=== PATIENT | female | born 1930 | race Caucasian/White ===

== ENCOUNTER 2019-02-17 18:36 | Inpatient (IN) | payer MEDICARE ==
[~2019-02-17] VITALS: Ht 172.7 cm; Wt 60.0 kg
[~2019-02-17 18:36] MED LIST: HYDR-4383 PO; METO-395 PO; PANT20TA3 PO; PREG50CA PO; SOTA80TA73 PO
--- NOTE | 2019-02-17 18:49 | NUR ---
Patient states she recently started antibiotics for urinary tract infection and has temperature of 100.9 oral on arrival. UA ordered.
[2019-02-17] MEDS ORDERED: acetaminophen 325mg tablet PO STA (19:00)
[2019-02-17 19:03] LABS: BASOPHILS % (AUTO) 0.2 % (0-1); EOSINOPHILS % (AUTO) 0.1 % (0-6); HEMATOCRIT 34.4 % (35.0-45.0); HEMOGLOBIN 11.8 g/dl (12.0-16.0); LYMPHOCYTES # (AUTO) 0.5 X10'3 (1.1-4.8); LYMPHOCYTES % (AUTO) 3.5 % (21-51); MEAN CORPUSCULAR HEMOGLOBIN 32.9 PG (27.0-31.0); MEAN CORPUSCULAR HGB CONC 34.2 g/dL (33.0-36.5); MEAN PLATELET VOLUME 8.4 FL (7.4-10.4); MONOCYTES # (AUTO) 1.3 X10'3 (0-0.9); MONOCYTES % (AUTO) 8.8 % (2-12); NEUTROPHILS # (AUTO) 13.3 X10'3 (1.8-7.7); NEUTROPHILS % (AUTO) 87.4 % (42-75); PLATELET COUNT 145 X10'3 (140-440); RED BLOOD COUNT 3.58 X10'6 (4.20-5.60); RED CELL DISTRIBUTION WIDTH 13.5 % (11.5-14.5); WHITE BLOOD COUNT 15.2 X10'3 (4.5-11.0)
[2019-02-17 19:07] LABS: INR 1.1 INR; PARTIAL THROMBOPLASTIN TIME 31 SECONDS (22-32)
[2019-02-17 19:13] LABS: ALANINE AMINOTRANSFERASE 35 U/L (12-78); ALBUMIN/GLOBULIN RATIO 0.8 (1.1-1.5); ALKALINE PHOSPHATASE 83 IU/L (46-116); ANION GAP 13 (8-16); ASPARTATE AMINO TRANSFERASE 34 U/L (10-37); BILIRUBIN,TOTAL 0.5 MG/DL (0.1-1.0); BLOOD UREA NITROGEN 56 MG/DL (7-18); BUN/CREATININE RATIO 30.9 (6.6-38.0); CALCIUM 8.9 MG/DL (8.5-10.1); CHLORIDE 107 MMOL/L (99-107); CREATININE 1.81 MG/DL (0.40-0.90); GLUCOSE 120 MG/DL (70-104); POTASSIUM 4.4 MMOL/L (3.5-5.1); SODIUM 139 MMOL/L (135-145); TOTAL CARBON DIOXIDE 19.5 MMOL/L (24-32); TOTAL PROTEIN 6.8 G/DL (6.4-8.2); eGFR 27 ML/MIN
[2019-02-17 19:35] LABS: CLARITY,URINE SLIGHTLY CLOUDY (Clear); COLOR,URINE YELLOW (Yellow); GLUCOSE, URINE NEGATIVE (Neg); KETONES,URINE NEGATIVE (Neg); LEUKOCYTE ESTERASE ,URINE MODERATE (Neg); NITRITES, URINE NEGATIVE (Neg); OCCULT BLOOD,URINE MODERATE (Neg); PROTEIN,URINE 100 mg/dl (Neg); UA COLLECTION TYPE STRAIGHT CATH; UROBILINOGEN,URINE 0.2 E.U/dL (0.2-1.0)
[2019-02-17 19:41] LABS: BACTERIA,URINE 3+ /HPF (Neg); MUCUS STRANDS NONE SEEN /LPF (Neg); SQUAMOUS EPITHELIAL CELL,UR NONE SEEN /LPF (FEW); WBC,URINE 50-100 /HPF (0-4)
[2019-02-17 19:51] LABS: TOTAL CELLS COUNTED 100
[2019-02-17 19:52] LABS: PLATELET ESTIMATE NORMAL
[2019-02-17] MEDS ORDERED: CefTRIAXone/D5W-Rocephin 1gm 50 ML IV ONE (20:00)
[2019-02-17] MEDS ORDERED: normal saline 1000ML IV soln IVB ONE ×2 (20:30→20:50)
[2019-02-17] MEDS: normal saline 1000ml 1,000 ML IV SCH (20:57)
[2019-02-17] MEDS ORDERED: ondansetron/PF 4mg/2ml inj IV PRN (21:00)
[2019-02-17] MEDS ORDERED: magnesium 4gm in 100ml NS 100 ML IV PRN (21:00)
[2019-02-17] MEDS ORDERED: metoclopramide 5 mg/ml inj IV PRN (21:00)
[2019-02-17] MEDS ORDERED: magnesium Cl slow-release 64mg tablet PO PRN (21:00)
[2019-02-17] MEDS ORDERED: potassium Cl 20 mEq SR tablet PO PRN ×2 (21:00)
[2019-02-17] MEDS ORDERED: bisacodyl 10mg suppository rectal RC PRN (21:00)
[2019-02-17] MEDS ORDERED: acetaminophen 325mg tablet PO PRN (21:00)
[2019-02-17] MEDS ORDERED: potassium CL 10mEq/100ml bag 100 ML IV PRN (21:00)
[2019-02-17] MEDS ORDERED: mag hydrox/Alum hydrox/simeth 30ml oral suspension PO PRN (21:00)
[2019-02-17] MEDS ORDERED: magnesium 2GM in 50ml NS 50 ML IV PRN (21:00)
[2019-02-17] MEDS ORDERED: magnesium hydroxide 30ml (MOM) UD suspension PO PRN (21:00)
[2019-02-17] MEDS ORDERED: potassium Cl 40MEQ/NS 500ml 500 ML IV PRN (21:00)
[2019-02-17] MEDS ORDERED: ACET-2119 PO (21:03)
--- NOTE | 2019-02-17 21:50 | NUR ---
Patient in room [facility]. I have received report from ANIL OLIVEIRA IN THE ER and had the opportunity to ask questions and will assume patient care upon arrival to the floor. Addendum: 02/17/19 at 2151 by Jamila Norwood RN Amended: Links added.
--- NOTE | 2019-02-17 22:10 | NUR ---
ARRIVED TO THE FLOOR AND SETTLED IN.
[2019-02-17 22:18] VITALS: BP 117/56
[2019-02-18] VITALS: BP 87/51
--- NOTE | 2019-02-18 | NUR ---
rolled over to her side to go to sleep after eating part of a turkey sandwich and non fat milk.
--- NOTE | 2019-02-18 01:57 | NUR ---
resting on her side eyes closed without s&s of distress at this time.
--- NOTE | 2019-02-18 02:48 | NUR ---
resting eyes closed no s&s of distress at this time.
--- NOTE | 2019-02-18 04:45 | NUR ---
pt resting eyes closed without changes at this time.
[2019-02-18 05:28] LABS: HEMOGLOBIN 10.4 g/dl (12.0-16.0); LYMPHOCYTES # (AUTO) 1.7 X10'3 (1.1-4.8); MEAN CORPUSCULAR HEMOGLOBIN 33.1 PG (27.0-31.0); MONOCYTES # (AUTO) 1.6 X10'3 (0-0.9); RED BLOOD COUNT 3.14 X10'6 (4.20-5.60); WHITE BLOOD COUNT 16.1 X10'3 (4.5-11.0)
[2019-02-18 05:32] LABS: BASOPHILS % (AUTO) 0 % (0-1); EOSINOPHILS # (AUTO) 0.1 X10'3 (0-0.9); EOSINOPHILS % (AUTO) 0.3 % (0-6); HEMATOCRIT 30.9 % (35.0-45.0); LYMPHOCYTES % (AUTO) 10.5 % (21-51); MEAN CORPUSCULAR HGB CONC 33.6 g/dL (33.0-36.5); MEAN CORPUSCULAR VOLUME 98.6 FL (78-98); MEAN PLATELET VOLUME 9.2 FL (7.4-10.4); MONOCYTES % (AUTO) 9.9 % (2-12); NEUTROPHILS # (AUTO) 12.8 X10'3 (1.8-7.7); NEUTROPHILS % (AUTO) 79.3 % (42-75); PLATELET COUNT 123 X10'3 (140-440); RED CELL DISTRIBUTION WIDTH 13.8 % (11.5-14.5)
--- NOTE | 2019-02-18 05:45 | NUR ---
assist to brp void dark foul smelling urine 200cc and then assisted into bed. c/o headache and tylenol obtained and given to her.
[2019-02-18] MEDS: acetaminophen 325mg tablet PO PRN ×2 (06:00→12:10)
[2019-02-18 06:20] LABS: ALANINE AMINOTRANSFERASE 31 U/L (12-78); ALBUMIN 2.6 G/DL (3.4-5.0); ALBUMIN/GLOBULIN RATIO 0.8 (1.1-1.5); ALKALINE PHOSPHATASE 68 IU/L (46-116); ANION GAP 12 (8-16); ASPARTATE AMINO TRANSFERASE 26 U/L (10-37); BILIRUBIN,TOTAL 0.3 MG/DL (0.1-1.0); BLOOD UREA NITROGEN 57 MG/DL (7-18); BUN/CREATININE RATIO 32.4 (6.6-38.0); CALCIUM 8.5 MG/DL (8.5-10.1); CHLORIDE 110 MMOL/L (99-107); CREATININE 1.76 MG/DL (0.40-0.90); GLUCOSE 100 MG/DL (70-104); MAGNESIUM 1.7 MG/DL (1.5-2.4); PHOSPHORUS 2.8 MG/DL (2.3-4.5); POTASSIUM 4.3 MMOL/L (3.5-5.1); SODIUM 142 MMOL/L (135-145); TOTAL CARBON DIOXIDE 19.8 MMOL/L (24-32); eGFR 27 ML/MIN
--- NOTE | 2019-02-18 06:41 | NUR ---
Problems reprioritized. Patient report given, questions answered & plan of care reviewed with Emelia Ramos. Addendum: 02/18/19 at 0641 by Jamila Norwood RN Amended: Links added.
[2019-02-18 07:00] VITALS: BP 96/43
[2019-02-18 07:10] LABS: TOTAL CELLS COUNTED 100
[2019-02-18 07:11] LABS: ANISOCYTOSIS 1+; PLATELET ESTIMATE DECREASED
[2019-02-18] MEDS ORDERED: heparin, porcine 5000 units/ml vial SQ SCH (08:00)
[2019-02-18] MEDS ORDERED: K and/or MAG REPLACEMENT MC SCH (08:00)
[2019-02-18] MEDS ORDERED: sotalol 80mg tablet PO SCH (08:00)
[2019-02-18] MEDS ORDERED: LEVO500T2 PO (08:11)
[2019-02-18] MEDS: normal saline 1000ml 1,000 ML IV SCH (09:30)
--- NOTE | 2019-02-18 10:20 | NUR ---
Student documentation: I have reviewed and agree with all interventions, assessments performed and documented by Ashley, graduate student.
--- NOTE | 2019-02-18 12:26 | NUR ---
Patient in room [facility]. I have received report from TEE Kapoor and had the opportunity to ask questions and assume patient care.
--- NOTE | 2019-02-18 16:45 | NUR ---
reviewed discharge instructions with pt and her daughter at bedside. All questions answered. [facility] pharmacy delivered pts prescription abx to bedside. Pts personal bottle of Sotalol retrieved from ER and given to daughter. IV removed and pt escorted to car via wheelchair for d/c.
[2019-02-18] MEDS ORDERED: lactobacillus rhamnosus 10,000 MMU CELLS/CAPSULE PO SCH (20:00)
[2019-02-18] MEDS ORDERED: CefTRIAXone/D5W-Rocephin 1gm 50 ML IV SCH (20:00)
== END 2019-02-18 17:08 | disposition home or self-care (01) | DRG 871 ==
LOC: ER 18:37 → SUR 3N 21:15
PROVIDERS: ADMIT Family Medicine; ATTEND Internal Medicine
DX: A41.9 Sepsis, unspecified organism (principal); G93.41 Metabolic encephalopathy; N39.0 Urinary tract infection, site not specified; G89.29 Other chronic pain; N18.3 Chronic kidney disease, stage 3 (moderate); C44.92 Squamous cell carcinoma of skin, unspecified; E78.5 Hyperlipidemia, unspecified; F03.90 Unspecified dementia, unspecified severity, without behavioral disturbance, psychotic disturbance, mood disturbance, and anxiety; I12.9 Hypertensive chronic kidney disease with stage 1 through stage 4 chronic kidney disease, or unspecified chronic kidney disease; I48.0 Paroxysmal atrial fibrillation; Z96.652 Presence of left artificial knee joint; F41.9 Anxiety disorder, unspecified; F32.9 Major depressive disorder, single episode, unspecified; R41.89 Other symptoms and signs involving cognitive functions and awareness; M54.9 Dorsalgia, unspecified; B96.89 Other specified bacterial agents as the cause of diseases classified elsewhere; Z87.440 Personal history of urinary (tract) infections; Z90.49 Acquired absence of other specified parts of digestive tract; Z90.710 Acquired absence of both cervix and uterus; Z95.0 Presence of cardiac pacemaker; Z88.5 Allergy status to narcotic agent; Z88.0 Allergy status to penicillin; Z88.8 Allergy status to other drugs, medicaments and biological substances
CPT/HCPCS: 36415; 71045; 80053; 81001; 83605; 83735; 84100; 84145; 84484; 85025; 85610; 85730; 87040; 87070; 87077; 87088; 87186; 93005; 96365; 97116; 97162; 99285; G0378; J0696; J7030

== ENCOUNTER 2019-02-23 20:49 | Emergency (ER) | payer MEDICARE ==
[~2019-02-23] VITALS: Ht 172.7 cm; Wt 55.0 kg
[~2019-02-23 20:49] MED LIST changes: +ACET-2119 PO; -HYDR-4383 PO; +LEVO500T2 PO; -METO-395 PO; -PANT20TA3 PO; -PREG50CA PO
[2019-02-23 21:02] VITALS: BP 133/91
[2019-02-23 21:44] LABS: BASOPHILS # (AUTO) 0.1 X10'3 (0-0.2); BASOPHILS % (AUTO) 0.8 % (0-1); EOSINOPHILS # (AUTO) 0.3 X10'3 (0-0.9); EOSINOPHILS % (AUTO) 3.6 % (0-6); HEMATOCRIT 37.2 % (35.0-45.0); HEMOGLOBIN 12.6 g/dl (12.0-16.0); LYMPHOCYTES % (AUTO) 27.1 % (21-51); MEAN CORPUSCULAR HEMOGLOBIN 32.2 PG (27.0-31.0); MEAN CORPUSCULAR HGB CONC 33.7 g/dL (33.0-36.5); MEAN CORPUSCULAR VOLUME 95.6 FL (78-98); MEAN PLATELET VOLUME 8.1 FL (7.4-10.4); MONOCYTES # (AUTO) 1.2 X10'3 (0-0.9); NEUTROPHILS # (AUTO) 3.8 X10'3 (1.8-7.7); NEUTROPHILS % (AUTO) 51.5 % (42-75); PLATELET COUNT 236 X10'3 (140-440); RED BLOOD COUNT 3.89 X10'6 (4.20-5.60); RED CELL DISTRIBUTION WIDTH 13.3 % (11.5-14.5); WHITE BLOOD COUNT 7.3 X10'3 (4.5-11.0)
[2019-02-23 21:45] LABS: PARTIAL THROMBOPLASTIN TIME 33 SECONDS (22-32)
[2019-02-23 21:47] LABS: ALANINE AMINOTRANSFERASE 33 U/L (12-78); ALBUMIN/GLOBULIN RATIO 0.7 (1.1-1.5); ALKALINE PHOSPHATASE 105 IU/L (46-116); ANION GAP 11 (8-16); ASPARTATE AMINO TRANSFERASE 32 U/L (10-37); BILIRUBIN,TOTAL 0.2 MG/DL (0.1-1.0); BLOOD UREA NITROGEN 28 MG/DL (7-18); BUN/CREATININE RATIO 19.9 (6.6-38.0); CHLORIDE 106 MMOL/L (99-107); CREATININE 1.41 MG/DL (0.40-0.90); GLUCOSE 142 MG/DL (70-104); POTASSIUM 4.5 MMOL/L (3.5-5.1); SODIUM 139 MMOL/L (135-145); TOTAL CARBON DIOXIDE 22.1 MMOL/L (24-32); TOTAL PROTEIN 7.4 G/DL (6.4-8.2); eGFR 35 ML/MIN
[2019-02-23] MEDS ORDERED: normal saline 1000ML IV soln IVB ONE (22:15)
[2019-02-23 22:26] LABS: NUCLEATED RED BLOOD CELLS 3 /100WBC (0-0); TOTAL CELLS COUNTED 100
[2019-02-23 22:27] LABS: PLATELET ESTIMATE NORMAL
[2019-02-23 23:28] LABS: CLARITY,URINE CLEAR (Clear); COLOR,URINE YELLOW (Yellow); GLUCOSE, URINE NEGATIVE (Neg); KETONES,URINE NEGATIVE (Neg); LEUKOCYTE ESTERASE ,URINE NEGATIVE (Neg); NITRITES, URINE NEGATIVE (Neg); OCCULT BLOOD,URINE NEGATIVE (Neg); PH,URINE 6.5 (4.8-8.0); PROTEIN,URINE 100 mg/dl (Neg); UROBILINOGEN,URINE 0.2 E.U/dL (0.2-1.0)
[2019-02-23 23:32] LABS: UA COLLECTION TYPE CLN CATCH MIDSTREAM
[2019-02-23 23:44] LABS: BACTERIA,URINE FEW /HPF (Neg); MUCUS STRANDS NONE SEEN /LPF (Neg); RBC,URINE NONE SEEN /HPF (0-2); SQUAMOUS EPITHELIAL CELL,UR MANY /LPF (FEW); WBC,URINE 0-4 /HPF (0-4)
== END 2019-02-23 23:31 | disposition home or self-care (01) ==
LOC: ER 20:50
DX: N18.9 Chronic kidney disease, unspecified (principal); R06.02 Shortness of breath; Z90.49 Acquired absence of other specified parts of digestive tract; Z90.710 Acquired absence of both cervix and uterus; Z98.890 Other specified postprocedural states; Z88.0 Allergy status to penicillin; Z88.5 Allergy status to narcotic agent; Z88.8 Allergy status to other drugs, medicaments and biological substances; Z79.899 Other long term (current) drug therapy
CPT/HCPCS: 36415; 71045; 80053; 81001; 84439; 84443; 84484; 85025; 85610; 85730; 93005; 99284; J7030